=== PATIENT | male | born 1975 | race Caucasian/White ===

== ENCOUNTER 2016-05-08 14:27 | Day surgery (SDC) | payer OTHER ==
[~2016-05-08] VITALS: Ht 182.9 cm; Wt 104.4 kg
[~2016-05-08 14:27] MED LIST: HUMIRA
[2016-05-08 15:19] VITALS: Ht 182.9 cm; Wt 104.4 kg
[2016-05-08 16:01] VITALS: BP 110/67; PULSE 66; RESP 18
[2016-05-08] MEDS ORDERED: PROPOFOL 40 ML ONE (16:01)
[2016-05-08 17:17] VITALS: BP 113/62; PULSE 62; RESP 18
--- NOTE | 2016-05-08 18:04 | GILP ---
DATE OF PROCEDURE: 05/08/2016 NAME OF PROCEDURES: 1. Esophagogastroduodenoscopy and biopsy. 2. Colonoscopy and biopsy. SURGEON: Dara Bonilla MD PREOPERATIVE DIAGNOSES: 1. Abdominal pain. 2. Chronic diarrhea. POSTOPERATIVE DIAGNOSES: 1. Reflux esophagitis with erosions. 2. Gastritis with erosions. 3. Gastric mucosal biopsies were taken for Helicobacter pylori test. 4. Colonoscopy all the way to the cecum. 5. Internal hemorrhoids. 6. Random biopsies were taken to rule out microscopic colitis. INDICATION FOR THE PROCEDURE: Mr. Andrea Zhao is a 40-year-old male patient who had upper abdomin al pain, not responding to therapy. He also had lower abdominal pain and episodes of diarrhea. The patient was scheduled for endoscopy and colonoscopy for further evaluation. The procedures and possible complications were well explained to the patient. The patient understoo d and consented to the procedures. DESCRIPTION OF PROCEDURE: Under the influence of anesthesia, the gastroscope was carefully introduc ed into the esophagus and under direct vision, it was advanced to the stomach and through the pyloru s into the duodenal bulb and descending duodenum. FINDINGS: ESOPHAGUS: The patient had reflux esophagitis with erosions. STOMACH: He had gastritis with erosions. Gastric mucosal biopsies were taken for H. pylori test. DUODENUM: Normal. The colonoscope was carefully introduced in the rectum and under direct vision, it was advanced all the way to the cecum. FINDINGS: The patient had internal hemorrhoids. Random biopsies were taken to rule out microscopic colitis. He tolerated the procedures very well and there was no complication from the procedures. At the end of the procedures, he was awake with stable vital signs and he was discharged home to the care of h is family. IMPRESSION: 1. Reflux esophagitis with erosions. 2. Gastritis with erosions. 3. Gastric mucosal biopsies were taken for Helicobacter pylori test. 4. Colonoscopy all the way to the cecum. 5. Internal hemorrhoids. 6. Random biopsies were taken to rule out microscopic colitis. PLAN 1. Omeprazole 40 mg p.o. q.a.m. 2. Bentyl 10 mg p.o. t.i.d. p.r.n. for pain or diarrhea. 3. Await histopathology reports. Dictated By: DARA GARVIN/KATHARINA Conf#: [id number] DID#: [id number] CC: DARA BONILLA MD;*[facility]*
== END 2016-05-08 17:58 | disposition home or self-care (01) ==
LOC: GIL 14:27
PROVIDERS: ATTEND Internal Medicine Gastroenterology
DX: K21.0 Gastro-esophageal reflux disease with esophagitis (principal); K29.70 Gastritis, unspecified, without bleeding; K64.8 Other hemorrhoids; R19.7 Diarrhea, unspecified
CPT/HCPCS: 43239; 45380; 87081; 88305; Z7610